=== PATIENT | male | born 1955 | race Two or more races ===

== ENCOUNTER → 2025-05-18 | Outpatient (REF) | payer MEDICARE ==
[~2025-05-18] MED LIST: ATOR1TAB19; LISI10TA22; METF-838
== END ==
LOC: M SMT 13:33
PROVIDERS: ATTEND Urology
DX: R97.20 Elevated prostate specific antigen [PSA] (principal); C61 Malignant neoplasm of prostate

== ENCOUNTER → 2025-08-08 | Outpatient (CLI) | payer MEDICARE | LOC: M ONCR 16:02 | PROVIDERS: ATTEND General Practice | DX: C61 Malignant neoplasm of prostate (principal); R97.20 Elevated prostate specific antigen [PSA]; Z79.84 Long term (current) use of oral hypoglycemic drugs; Z79.899 Other long term (current) drug therapy ==

== ENCOUNTER 2025-08-20 10:34 | Outpatient (RCR) | payer MEDICARE | END 2025-08-29 | LOC: M ONCR 10:34 | PROVIDERS: ATTEND General Practice | DX: Z51.0 Encounter for antineoplastic radiation therapy (principal); C61 Malignant neoplasm of prostate ==